=== PATIENT | female | born 1980 | race Caucasian/White ===

== ENCOUNTER → 2021-09-20 12:37 | Outpatient (CLI) | payer OTHER, SELFPAY ==
--- NOTE | ~2021-09-20 | MM_ITS ---
EXAMINATION: MM screening pat BI w mic HISTORY: Screening TECHNIQUE: Craniocaudal and mediolateral oblique 3-D tomosynthesis images were obtained and synthetic 2-D images were generated. CAD analysis was submitted and interpreted. COMPARISON: No prior mammogram is available for comparison at this institution. BREAST PARENCHYMAL COMPOSITION: The breasts are heterogeneously dense, which may obscure small masses . FINDINGS: There is no evidence of suspicious mass, calcification, or architectural distortion to sugg est malignancy in either breast. There has been no suspicious interval change. IMPRESSION: 1. No mammographic evidence of malignancy. 2. Recommend routine screening mammography in one year. BI-RADS Category 1: Negative Reviewed, dictated and finalized at location A.
== END ==
PROVIDERS: Visit Provider Advanced Practice Midwife
DX: Z12.31 Encounter for screening mammogram for malignant neoplasm of breast (principal)
CPT/HCPCS: 77063; 77067

== ENCOUNTER 2024-01-30 16:02 | Outpatient (CLI) | payer OTHER, SELFPAY ==
--- NOTE | ~2024-01-30 | XR_ITS ---
XR hip LT 2V w AP pelvis Ordering provider: Xiomy Weston PA-C History: . M25.552 - Pain in left hip . Comparison: None. FINDINGS: BONES: No acute fracture or dislocation. HIP JOINT SPACES: Normal. SACROILIAC JOINT SPACES/LUMBAR SPINE: The sacroiliac joint spaces are normal. Normal visualized lower lumbar spine. PUBIC SYMPHYSIS: Normal. SOFT TISSUES: Normal. IMPRESSION: No acute osseous abnormality pelvis and left hip. Reviewed, dictated and finalized at location A.
== END 2024-01-30 16:03 ==
PROVIDERS: PCP Family Medicine; Visit Provider Student in an Organized Health Care Education/Training Program
DX: M25.552 Pain in left hip (principal)
CPT/HCPCS: 73502